=== PATIENT | female | born 1975 | race Caucasian/White ===

== ENCOUNTER 2021-06-14 21:45 | Inpatient (IN) ==
[2021-06-14] MEDS ORDERED: SODIUM CHLORIDE 0.9% 1,000 ML IV STA ×2 (22:11→23:19)
[2021-06-14 22:45] LABS: Basophils # 0.1 10*3/uL (0.0-0.2); Basophils % 0.3 % (0.0-0.8); Eosinophils # 0.1 10*3/uL (0.0-0.87); Eosinophils % 0.4 % (0.00-10.9); Hematocrit 29.1 VOL% (35.7-47.0); Hemoglobin 9.3 GM/DL (12.0-16.0); Immature Granulocytes % 5.7 %; Immature Granulocytes Absolute 1.49 #; Lymphocytes % 3.8 % (21.3-54.2); Mean Corpuscular Volume 88.4 FL (87-102); Mean Platelet Volume 9.4 FL (9.6-12.0); Monocytes % 3.2 % (1.7-12.7); Neutrophils % 86.6 % (38.7-73.9); Platelet Count 844 T/CUMM (130-400); Red Blood Count 3.29 MC/CUMM (3.8-5.5); Red Cell Distribution Width 14.6 % (9.3-17.3); White Blood Count 26.3 T/CUMM (4-12)
[2021-06-14 22:56] LABS: Bacteria,Urine Many /HPF (Few); Bilirubin,Urine Negative (Negative); Blood, Urine Moderate mg/dL (Negative); Glucose,Urine (UA) Negative (Negative); Hyaline Casts,Urine 5 /LPF (0-3); Ketones,Urine Negative (Negative); Nitrite,Urine Positive (Negative); Protein,Urine 30 MG/DL; Squamous Epithelial Cell,Urine Occasional /HPF (0-10); Urine Appearance Slightly Hazy (Clear); Urine Color Yellow (Yellow); Urine Specific Gravity 1.011 (1.001-1.035); Urine Urobilinogen < 2.0 EU/DL (0.2-1.0)
[2021-06-14 22:57] LABS: PT Patient Result 11.2 SECS (10.5-12.0)
[2021-06-14 23:02] LABS: Barbiturates Screen,Urine Negative (Negative); Benzodiazepines Screen,Urine Negative (Negative); Cannabinoid Screen,Urine Negative (Negative); Opiate Screen,Urine Positive (Negative); Phencyclidine Screen,Urine Negative (Negative)
[2021-06-14 23:02] LABS: Acetaminophen < 2.0 UG/ML (10-30); Salicylate 3.1 MG/DL (2.8-20)
[2021-06-14 23:07] LABS: Alanine Aminotransferase 44 U/L (13-56); Albumin 2.6 G/DL (3.4-5.0); Alkaline Phosphatase 142 U/L (45-117); Aspartate Amino Transferase 67 U/L (0-37); Blood Urea Nitrogen 38 MG/DL (7-18); Calcium 8.6 MG/DL (8.5-10.1); Carbon Dioxide 18 MMOL/L (21-32); Estimated Glom Filtration Rate 33 ML/MIN; Glucose 112 MG/DL (74-106); Osmolality,Calculated 282.8 MOS/KG (273-304); Potassium 4.6 MMOL/L (3.5-5.1); Sodium 137 MMOL/L (136-145)
[2021-06-14] MEDS ORDERED: PIPERACILLIN/TAZOBACTAM 3,375 MG in SODIUM CHLORIDE 0.9% 100 ML IV STA (23:19)
[2021-06-14 23:43] LABS: Ferritin 222.9 ng/mL (8-252)
[2021-06-15 00:07] LABS: Lymphocytes 4 % (20-55); Platelet Estimate Increased; Segmented Neutrophils 93 % (50-85); Total Cells Counted 100
[2021-06-15 00:16] LABS: Microcytosis 1+; Polychromasia Few
[2021-06-15 00:17] LABS: Hypochromasia Slight
[2021-06-15] MEDS ORDERED: NOREPINEPHRINE 16 MG in SODIUM CHLORIDE 0.9% 234 ML IV PRN (00:21)
[2021-06-15 00:51] LABS: ABG Base Excess -12.3 MMOL/L (-2.5-2.5); ABG HCO3 14.7 MMOL/L (20-26); ABG Oxygen Saturation 91.8 % (95-100); ABG PCO2 38.1 MM HG (35-48); ABG PO2 73.9 MM HG (80-95); ABG TCO2 14.3 MMOL/L (23-27)
[2021-06-15 00:52] LABS: ABG PH 7.203 (7.35-7.45)
[2021-06-15] MEDS: DEXTROSE 5% NACL 0.9% 1,000 ML IV SCH ×3 (03:20→19:25)
[2021-06-15] MEDS: ENOXAPARIN 40 MG/0.4 ML SYRINGE SUBCUT SCH (03:44)
[2021-06-15] MEDS: PANTOPRAZOLE 40 MG VIAL IV SCH (03:46)
[2021-06-15 05:59] LABS: Basophils # 0.1 10*3/uL (0.0-0.2); Basophils % 0.2 % (0.0-0.8); Eosinophils % 0.1 % (0.00-10.9); Hematocrit 28.4 VOL% (35.7-47.0); Immature Granulocytes % 3.2 %; Immature Granulocytes Absolute 0.81 #; Lymphocytes # 1.8 10*3/uL (1.4-4.0); Lymphocytes % 7.1 % (21.3-54.2); Mean Corpuscular HGB Conc 31.7 GM/DL (32-36); Mean Corpuscular Volume 90.7 FL (87-102); Monocytes % 2.9 % (1.7-12.7); Neutrophils % 86.5 % (38.7-73.9); Platelet Count 676 T/CUMM (130-400); Red Blood Count 3.13 MC/CUMM (3.8-5.5); Red Cell Distribution Width 14.7 % (9.3-17.3); White Blood Count 25.6 T/CUMM (4-12)
[2021-06-15 06:48] LABS: Folate 8.64 NG/ML (5.38-24.0)
[2021-06-15 07:01] LABS: Calcium 7.9 MG/DL (8.5-10.1); Ferritin 231.4 ng/mL (8-252); Osmolality,Calculated 280.8 MOS/KG (273-304); Potassium 3.7 MMOL/L (3.5-5.1); Thyroid Stimulating Hormone 0.166 uIU/ml (0.358-3.74)
[2021-06-15 08:53] LABS: Band Neutrophils 14 % (0-10); Lymphocytes 6 % (20-55); Platelet Estimate Increased; Segmented Neutrophils 75 % (50-85); Total Cells Counted 100
[2021-06-15 08:54] LABS: Anisocytosis 1+; Burr Cells Few; Macrocytosis Slight
[2021-06-15] MEDS: ASCORBIC ACID 500 MG TABLET PO SCH ×3 (10:30→21:28)
[2021-06-15] MEDS: ZINC GLUCONATE 50 MG TABLET PO SCH ×2 (10:30→10:45)
[2021-06-15] MEDS: CETIRIZINE 10 MG TABLET PO SCH ×2 (10:30→10:45)
[2021-06-15] MEDS: CHOLECALCIFEROL 1,000 UNIT TABLET PO SCH ×2 (10:30→10:45)
[2021-06-15] MEDS: DEXAMETHASONE 4 MG/1 ML VIAL IV SCH (10:44)
[2021-06-15] MEDS: NICOTINE 21 MG/24 HR PATCH TRANSDERM SCH (10:44)
[2021-06-15] MEDS: PIPERACILLIN/TAZOBACTAM 3,375 MG in SODIUM CHLORIDE 0.9% 100 ML IV SCH ×2 (11:04→18:42)
[2021-06-15] MEDS: POTASSIUM CHLORIDE RIDER 10 MEQ/100 ML PREMIX IV PRN ×6 (12:13→19:45)
[2021-06-15 13:35] LABS: Calcium 7.9 MG/DL (8.5-10.1); Potassium 3.2 MMOL/L (3.5-5.1)
[2021-06-15] MEDS: MAGNESIUM SULF RIDER 2 GM/50 ML PREMIX IV PRN (14:12)
[2021-06-15] MEDS ORDERED: POTASSIUM CHLORIDE 20 MEQ TABLET PO ONE (14:26)
[2021-06-16] MEDS: ENOXAPARIN 40 MG/0.4 ML SYRINGE SUBCUT SCH (01:37)
[2021-06-16] MEDS: PANTOPRAZOLE 40 MG VIAL IV SCH (01:37)
[2021-06-16] MEDS: PIPERACILLIN/TAZOBACTAM 3,375 MG in SODIUM CHLORIDE 0.9% 100 ML IV SCH ×3 (02:45→17:30)
[2021-06-16] MEDS: DEXTROSE 5% NACL 0.9% 1,000 ML IV SCH ×3 (03:25→17:30)
[2021-06-16] MEDS: DEXAMETHASONE 4 MG/1 ML VIAL IV SCH (08:53)
[2021-06-16] MEDS: ASCORBIC ACID 500 MG TABLET PO SCH ×2 (08:54→21:04)
[2021-06-16] MEDS: CETIRIZINE 10 MG TABLET PO SCH (08:54)
[2021-06-16] MEDS: ZINC GLUCONATE 50 MG TABLET PO SCH (08:54)
[2021-06-16] MEDS: CHOLECALCIFEROL 1,000 UNIT TABLET PO SCH (08:54)
[2021-06-16] MEDS: NICOTINE 21 MG/24 HR PATCH TRANSDERM SCH (08:57)
[2021-06-16] MEDS: MAGNESIUM SULF RIDER 2 GM/50 ML PREMIX IV PRN ×2 (08:59→11:00)
[2021-06-16 11:15] LABS: ABG Base Excess -7.2 MMOL/L (-2.5-2.5); ABG HCO3 18.4 MMOL/L (20-26); ABG Oxygen Saturation 87.5 % (95-100); ABG PCO2 36.5 MM HG (35-48); ABG PH 7.311 (7.35-7.45); ABG PO2 54.8 MM HG (80-95); ABG TCO2 17.2 MMOL/L (23-27)
[2021-06-16 19:15] LABS: Bacteria,Urine Occasional /HPF (Few); Bilirubin,Urine Negative (Negative); Blood, Urine Negative (Negative); Glucose,Urine (UA) 50 mg/dL (Negative); Hyaline Casts,Urine 14 /LPF (0-3); Ketones,Urine Negative (Negative); Nitrite,Urine Negative (Negative); Protein,Urine Negative; RBC,Urine 3 /HPF (0-4); Squamous Epithelial Cell,Urine Few /HPF (0-10); Urine Appearance CLOUDY (Clear); Urine Color Yellow (Yellow); Urine Specific Gravity 1.009 (1.001-1.035); Urine Urobilinogen < 2.0 EU/DL (0.2-1.0)
[2021-06-17] MEDS: DEXTROSE 5% NACL 0.9% 1,000 ML IV SCH ×3 (00:01→17:00)
[2021-06-17] MEDS: ENOXAPARIN 80 MG/0.8 ML SYRINGE SUBCUT SCH ×2 (01:22→16:00)
[2021-06-17] MEDS: PIPERACILLIN/TAZOBACTAM 3,375 MG in SODIUM CHLORIDE 0.9% 100 ML IV SCH ×2 (01:22→09:20)
[2021-06-17] MEDS: LORazepam 1 MG TABLET PO PRN ×2 (01:23→11:00)
[2021-06-17] MEDS: ENOXAPARIN 40 MG/0.4 ML SYRINGE SUBCUT SCH (02:53)
[2021-06-17 03:49] LABS: ABG Base Excess -5.1 MMOL/L (-2.5-2.5); ABG HCO3 20.2 MMOL/L (20-26); ABG Oxygen Saturation 96.2 % (95-100); ABG PCO2 38.4 MM HG (35-48); ABG PH 7.339 (7.35-7.45); ABG PO2 82.3 MM HG (80-95); ABG TCO2 21.4 MMOL/L (23-27)
[2021-06-17 04:21] LABS: Basophils % 0.1 % (0.0-0.8); Hemoglobin 9.1 GM/DL (12.0-16.0); Immature Granulocytes Absolute 0.16 #; Lymphocytes % 5.9 % (21.3-54.2); Mean Corpuscular HGB Conc 31.4 GM/DL (32-36); Mean Corpuscular Volume 89.5 FL (87-102); Mean Platelet Volume 9.2 FL (9.6-12.0); Monocytes % 3.5 % (1.7-12.7); NRBC # 0.03 10*3/uL; Neutrophils % 89.5 % (38.7-73.9); Platelet Count 715 T/CUMM (130-400); Red Blood Count 3.24 MC/CUMM (3.8-5.5); Red Cell Distribution Width 15.3 % (9.3-17.3); White Blood Count 16.6 T/CUMM (4-12)
[2021-06-17 04:59] LABS: Alanine Aminotransferase 32 U/L (13-56); Albumin 2.2 G/DL (3.4-5.0); Alkaline Phosphatase 121 U/L (45-117); Aspartate Amino Transferase 26 U/L (0-37); Bilirubin,Total < 0.39 MG/DL (0.20-1.00); Blood Urea Nitrogen 8 MG/DL (7-18); Carbon Dioxide 20 MMOL/L (21-32); Estimated Glom Filtration Rate 116 ML/MIN; Ferritin 157.3 ng/mL (8-252); Glucose 127 MG/DL (74-106); Potassium 3.3 MMOL/L (3.5-5.1); Sodium 143 MMOL/L (136-145)
[2021-06-17] MEDS ORDERED: PANTOPRAZOLE 40 MG TABLET PO SCH (09:00)
[2021-06-17] MEDS: DEXAMETHASONE 4 MG/1 ML VIAL IV SCH (09:18)
[2021-06-17] MEDS: ASCORBIC ACID 500 MG TABLET PO SCH ×2 (09:19→22:24)
[2021-06-17] MEDS: ZINC GLUCONATE 50 MG TABLET PO SCH (09:19)
[2021-06-17] MEDS: CHOLECALCIFEROL 1,000 UNIT TABLET PO SCH (09:19)
[2021-06-17] MEDS: CETIRIZINE 10 MG TABLET PO SCH (09:19)
[2021-06-17] MEDS: NICOTINE 21 MG/24 HR PATCH TRANSDERM SCH (09:20)
[2021-06-17] MEDS: POTASSIUM CHLORIDE RIDER 10 MEQ/100 ML PREMIX IV PRN (10:00)
[2021-06-17] MEDS ORDERED: ETOMIDATE 20 MG/10 ML VIAL IV ONE ×2 (13:17→13:50)
[2021-06-17] MEDS ORDERED: SUCCINYLCHOLINE 200 MG/10 ML VIAL ONE (13:18)
[2021-06-17] MEDS ORDERED: LORazepam 2 MG/1 ML VIAL IV ONE (13:40)
[2021-06-17] MEDS ORDERED: LORazepam 2 MG/1 ML VIAL ONE (13:40)
[2021-06-17] MEDS ORDERED: ROCURONIUM 100 MG/10 ML VIAL IV ONE (13:46)
[2021-06-17] MEDS ORDERED: SUCCINYLCHOLINE 200 MG/10 ML VIAL IV ONE (13:50)
[2021-06-17 15:25] LABS: ABG Base Excess -6.1 MMOL/L (-2.5-2.5); ABG HCO3 19.4 MMOL/L (20-26); ABG Oxygen Saturation 98.7 % (95-100); ABG PCO2 38.5 MM HG (35-48); ABG PH 7.315 (7.35-7.45); ABG TCO2 18.3 MMOL/L (23-27)
[2021-06-17] MEDS ORDERED: MORPHINE 2 MG/1 ML SYRINGE IV PRN (15:31)
[2021-06-17] MEDS: methylPREDNISolone SOD SUC 40 MG/1 ML VIAL IV SCH ×2 (16:20→22:25)
[2021-06-17] MEDS: OLANZapine 10 MG VIAL IM SCH ×2 (16:21→22:27)
[2021-06-17] MEDS: FERRIC GLUCONATE COMPLEX 62.5 MG in SODIUM CHLORIDE 0.9% 100 ML IV SCH (16:21)
[2021-06-17] MEDS: cefTRIAXone 1,000 MG in SODIUM CHLORIDE 0.9% 100 ML IV SCH (16:40)
[2021-06-17] MEDS: MAGNESIUM SULF RIDER 2 GM/50 ML PREMIX IV PRN (17:00)
[2021-06-17] MEDS: AZITHROMYCIN INJ 500 MG in SODIUM CHLORIDE 0.9% 250 ML IV SCH (17:22)
[2021-06-18] MEDS: methylPREDNISolone SOD SUC 40 MG/1 ML VIAL IV SCH ×4 (01:13→22:23)
[2021-06-18] MEDS: ENOXAPARIN 80 MG/0.8 ML SYRINGE SUBCUT SCH ×2 (01:14→15:15)
[2021-06-18] MEDS: INSULIN REGULAR 100 UNIT/ML SUBCUT SCH ×4 (01:15→18:30)
[2021-06-18 02:46] LABS: ABG Base Excess -6.9 MMOL/L (-2.5-2.5); ABG HCO3 18.8 MMOL/L (20-26); ABG Oxygen Saturation 99.7 % (95-100); ABG PCO2 35.5 MM HG (35-48); ABG PH 7.324 (7.35-7.45); ABG TCO2 17.1 MMOL/L (23-27)
[2021-06-18] MEDS: DEXTROSE 5% NACL 0.9% 1,000 ML IV SCH ×3 (03:16→16:39)
[2021-06-18 03:51] LABS: Hematocrit 25.7 VOL% (35.7-47.0); Hemoglobin 8.2 GM/DL (12.0-16.0); Immature Granulocytes % 1.5 %; Immature Granulocytes Absolute 0.18 #; Lymphocytes # 0.7 10*3/uL (1.4-4.0); Lymphocytes % 5.8 % (21.3-54.2); Mean Corpuscular HGB Conc 31.9 GM/DL (32-36); Mean Corpuscular Volume 89.5 FL (87-102); Mean Platelet Volume 9.3 FL (9.6-12.0); Monocytes % 1.5 % (1.7-12.7); NRBC # 0.03 10*3/uL; Neutrophils % 91.2 % (38.7-73.9); Platelet Count 616 T/CUMM (130-400); Red Blood Count 2.87 MC/CUMM (3.8-5.5); Red Cell Distribution Width 15.7 % (9.3-17.3); White Blood Count 11.8 T/CUMM (4-12)
[2021-06-18 04:11] LABS: Alanine Aminotransferase 28 U/L (13-56); Alkaline Phosphatase 106 U/L (45-117); Aspartate Amino Transferase 25 U/L (0-37); Bilirubin,Total < 0.39 MG/DL (0.20-1.00); Blood Urea Nitrogen 9 MG/DL (7-18); Carbon Dioxide 20 MMOL/L (21-32); Estimated Glom Filtration Rate 113 ML/MIN; Ferritin 148.5 ng/mL (8-252); Glucose 132 MG/DL (74-106); Osmolality,Calculated 290.6 MOS/KG (273-304); Potassium 3.2 MMOL/L (3.5-5.1); Sodium 146 MMOL/L (136-145); Total Protein 6.1 G/DL (6.4-8.2)
[2021-06-18 04:15] LABS: Hypochromasia 1+; Lymphocytes 8 % (20-55); Microcytosis 1+; Platelet Estimate Increased; Segmented Neutrophils 91 % (50-85); Total Cells Counted 100
[2021-06-18] MEDS: POTASSIUM CHLORIDE RIDER 10 MEQ/100 ML PREMIX IV PRN (06:22)
[2021-06-18] MEDS ORDERED: PANTOPRAZOLE 40 MG VIAL IV ONE (08:40)
[2021-06-18] MEDS ORDERED: FUROSEMIDE 20 MG/2 ML VIAL IV ONE (08:43)
[2021-06-18] MEDS: FERRIC GLUCONATE COMPLEX 62.5 MG in SODIUM CHLORIDE 0.9% 100 ML IV SCH (08:49)
[2021-06-18] MEDS: ZINC GLUCONATE 50 MG TABLET PO SCH (08:50)
[2021-06-18] MEDS: CHOLECALCIFEROL 1,000 UNIT TABLET PO SCH (08:50)
[2021-06-18] MEDS: NICOTINE 21 MG/24 HR PATCH TRANSDERM SCH (08:50)
[2021-06-18] MEDS: ASCORBIC ACID 500 MG TABLET PO SCH ×2 (08:50→22:24)
[2021-06-18] MEDS: CETIRIZINE 10 MG TABLET PO SCH (08:51)
[2021-06-18] MEDS: PANTOPRAZOLE 40 MG VIAL IV SCH (08:51)
[2021-06-18] MEDS: OLANZapine 10 MG VIAL IM SCH ×2 (08:52→22:24)
[2021-06-18] MEDS ORDERED: DEXTROSE 50% 25 GM/50 ML VIAL IV PRN (13:42)
[2021-06-18] MEDS: cefTRIAXone 1,000 MG in SODIUM CHLORIDE 0.9% 100 ML IV SCH (16:00)
[2021-06-18] MEDS: AZITHROMYCIN INJ 500 MG in SODIUM CHLORIDE 0.9% 250 ML IV SCH (16:32)
[2021-06-18] MEDS: MIDAZOLAM 100 MG in SODIUM CHLORIDE 0.9% 80 ML IV PRN (18:10)
[2021-06-19] MEDS: ENOXAPARIN 80 MG/0.8 ML SYRINGE SUBCUT SCH ×2 (03:51→13:15)
[2021-06-19] MEDS: methylPREDNISolone SOD SUC 40 MG/1 ML VIAL IV SCH ×3 (03:52→22:00)
[2021-06-19 04:53] LABS: ABG Oxygen Saturation 98.5 % (95-100); ABG PCO2 34.3 MM HG (35-48); ABG PH 7.425 (7.35-7.45); ABG PO2 151.7 MM HG (80-95); ABG TCO2 23.1 MMOL/L (23-27)
[2021-06-19] MEDS: DEXTROSE 5% NACL 0.9% 1,000 ML IV SCH (05:06)
[2021-06-19 05:29] LABS: Basophils % 0.1 % (0.0-0.8); Immature Granulocytes % 2.8 %; Immature Granulocytes Absolute 0.61 #; Lymphocytes # 1.6 10*3/uL (1.4-4.0); Lymphocytes % 7.5 % (21.3-54.2); Mean Corpuscular HGB Conc 30.8 GM/DL (32-36); Neutrophils % 86.6 % (38.7-73.9); Platelet Count 754 T/CUMM (130-400); Red Blood Count 1.29 MC/CUMM (3.8-5.5); Red Cell Distribution Width 15.9 % (9.3-17.3); White Blood Count 21.5 T/CUMM (4-12)
[2021-06-19 05:45] LABS: Hemoglobin 3.7 GM/DL (12.0-16.0)
[2021-06-19 05:50] LABS: Lymphocytes 8 % (20-55); Platelet Estimate Increased; Segmented Neutrophils 89 % (50-85); Total Cells Counted 100
[2021-06-19 05:52] LABS: Hypochromasia 1+; Microcytosis 1+
[2021-06-19 05:53] LABS: Alanine Aminotransferase 21 U/L (13-56); Albumin 1.9 G/DL (3.4-5.0); Alkaline Phosphatase 97 U/L (45-117); Aspartate Amino Transferase 15 U/L (0-37); Bilirubin,Total < 0.39 MG/DL (0.20-1.00); Blood Urea Nitrogen 19 MG/DL (7-18); Calcium 8.5 MG/DL (8.5-10.1); Carbon Dioxide 21 MMOL/L (21-32); Estimated Glom Filtration Rate 118 ML/MIN; Glucose 138 MG/DL (74-106); Osmolality,Calculated 291.7 MOS/KG (273-304); Potassium 3.5 MMOL/L (3.5-5.1); Sodium 145 MMOL/L (136-145); Total Protein 5.8 G/DL (6.4-8.2)
[2021-06-19 05:55] LABS: Ferritin 213.9 ng/mL (8-252)
[2021-06-19] MEDS: INSULIN REGULAR 100 UNIT/ML SUBCUT SCH ×4 (06:19→17:40)
[2021-06-19 06:27] LABS: Basophils % 0.1 % (0.0-0.8); Eosinophils % 0.1 % (0.00-10.9); Hematocrit 26.9 VOL% (35.7-47.0); Immature Granulocytes % 2.3 %; Immature Granulocytes Absolute 0.33 #; Lymphocytes % 7.3 % (21.3-54.2); Mean Corpuscular HGB Conc 30.9 GM/DL (32-36); Mean Corpuscular Volume 90.9 FL (87-102); Mean Platelet Volume 10.2 FL (9.6-12.0); Monocytes % 2.9 % (1.7-12.7); NRBC # 0.02 10*3/uL; Neutrophils % 87.3 % (38.7-73.9)
[2021-06-19 06:29] LABS: White Blood Count 14.2 T/CUMM (4-12)
[2021-06-19 06:30] LABS: Hemoglobin 8.3 GM/DL (12.0-16.0); Platelet Count 520 T/CUMM (130-400); Red Blood Count 2.96 MC/CUMM (3.8-5.5)
[2021-06-19 06:44] LABS: Hypochromasia 1+; Lymphocytes 9 % (20-55); Microcytosis 1+; Platelet Estimate Adequate; Segmented Neutrophils 89 % (50-85); Total Cells Counted 100
[2021-06-19] MEDS: NICOTINE 21 MG/24 HR PATCH TRANSDERM SCH (09:03)
[2021-06-19] MEDS: OLANZapine 10 MG VIAL IM SCH ×2 (09:03→22:00)
[2021-06-19] MEDS: PANTOPRAZOLE 40 MG VIAL IV SCH (09:03)
[2021-06-19] MEDS: ASCORBIC ACID 500 MG TABLET PO SCH ×2 (09:04→22:00)
[2021-06-19] MEDS: CHOLECALCIFEROL 1,000 UNIT TABLET PO SCH (09:04)
[2021-06-19] MEDS: ZINC GLUCONATE 50 MG TABLET PO SCH (09:04)
[2021-06-19] MEDS: CETIRIZINE 10 MG TABLET PO SCH (09:08)
[2021-06-19] MEDS: FERRIC GLUCONATE COMPLEX 62.5 MG in SODIUM CHLORIDE 0.9% 100 ML IV SCH (10:49)
[2021-06-19] MEDS: POTASSIUM CHLORIDE RIDER 10 MEQ/100 ML PREMIX IV PRN ×3 (13:23→16:45)
[2021-06-19] MEDS: MIDAZOLAM 100 MG in SODIUM CHLORIDE 0.9% 80 ML IV PRN (17:33)
[2021-06-19] MEDS: AZITHROMYCIN INJ 500 MG in SODIUM CHLORIDE 0.9% 250 ML IV SCH (18:13)
[2021-06-19] MEDS: cefTRIAXone 1,000 MG in SODIUM CHLORIDE 0.9% 100 ML IV SCH (18:43)
[2021-06-19] MEDS: ACETAMINOPHEN 325 MG TABLET PO PRN (22:47)
[2021-06-20] MEDS: INSULIN REGULAR 100 UNIT/ML SUBCUT SCH ×4 (00:10→19:50)
[2021-06-20] MEDS: ENOXAPARIN 80 MG/0.8 ML SYRINGE SUBCUT SCH ×2 (02:30→13:46)
[2021-06-20 04:56] LABS: ABG Base Excess -2.7 MMOL/L (-2.5-2.5); ABG HCO3 22.3 MMOL/L (20-26); ABG Oxygen Saturation 94.7 % (95-100); ABG PCO2 39.6 MM HG (35-48); ABG PH 7.369 (7.35-7.45); ABG PO2 75.9 MM HG (80-95); ABG TCO2 23.5 MMOL/L (23-27)
[2021-06-20 05:43] LABS: Basophils % 0.1 % (0.0-0.8); Eosinophils # 0.3 10*3/uL (0.0-0.87); Hematocrit 27.9 VOL% (35.7-47.0); Hemoglobin 8.6 GM/DL (12.0-16.0); Immature Granulocytes % 2.6 %; Immature Granulocytes Absolute 0.41 #; Lymphocytes # 3.9 10*3/uL (1.4-4.0); Lymphocytes % 24.7 % (21.3-54.2); Mean Corpuscular HGB Conc 30.8 GM/DL (32-36); Mean Corpuscular Volume 91.8 FL (87-102); Mean Platelet Volume 9.5 FL (9.6-12.0); Monocytes % 6.2 % (1.7-12.7); Neutrophils % 64.4 % (38.7-73.9); Platelet Count 542 T/CUMM (130-400); Red Blood Count 3.04 MC/CUMM (3.8-5.5); Red Cell Distribution Width 16.3 % (9.3-17.3); White Blood Count 15.6 T/CUMM (4-12)
[2021-06-20] MEDS: DEXTROSE 5% NACL 0.9% 1,000 ML IV SCH (05:58)
[2021-06-20 06:13] LABS: Alanine Aminotransferase 21 U/L (13-56); Albumin 1.9 G/DL (3.4-5.0); Alkaline Phosphatase 88 U/L (45-117); Aspartate Amino Transferase 15 U/L (0-37); Bilirubin,Total < 0.39 MG/DL (0.20-1.00); Blood Urea Nitrogen 27 MG/DL (7-18); Calcium 8.6 MG/DL (8.5-10.1); Carbon Dioxide 22 MMOL/L (21-32); Estimated Glom Filtration Rate 119 ML/MIN; Glucose 95 MG/DL (74-106); Osmolality,Calculated 292.7 MOS/KG (273-304); Potassium 3.5 MMOL/L (3.5-5.1); Sodium 145 MMOL/L (136-145); Total Protein 5.7 G/DL (6.4-8.2)
[2021-06-20 06:15] LABS: Ferritin 251.8 ng/mL (8-252)
[2021-06-20] MEDS: PANTOPRAZOLE 40 MG VIAL IV SCH (09:02)
[2021-06-20] MEDS: OLANZapine 10 MG VIAL IM SCH ×2 (09:02→21:44)
[2021-06-20] MEDS: ASCORBIC ACID 500 MG TABLET PO SCH ×2 (09:03→21:44)
[2021-06-20] MEDS: CHOLECALCIFEROL 1,000 UNIT TABLET PO SCH (09:03)
[2021-06-20] MEDS: methylPREDNISolone SOD SUC 40 MG/1 ML VIAL IV SCH ×2 (09:03→21:43)
[2021-06-20] MEDS: ZINC GLUCONATE 50 MG TABLET PO SCH (09:03)
[2021-06-20] MEDS: CETIRIZINE 10 MG TABLET PO SCH (09:03)
[2021-06-20] MEDS: FLUCONAZOLE INJ 100 MG/50 ML PREMIX IV SCH (09:04)
[2021-06-20] MEDS: NICOTINE 21 MG/24 HR PATCH TRANSDERM SCH (09:04)
[2021-06-20] MEDS: FERRIC GLUCONATE COMPLEX 62.5 MG in SODIUM CHLORIDE 0.9% 100 ML IV SCH (09:05)
[2021-06-20] MEDS: AZITHROMYCIN INJ 500 MG in SODIUM CHLORIDE 0.9% 250 ML IV SCH (15:46)
[2021-06-20] MEDS: cefTRIAXone 1,000 MG in SODIUM CHLORIDE 0.9% 100 ML IV SCH (16:30)
[2021-06-21] MEDS: ENOXAPARIN 80 MG/0.8 ML SYRINGE SUBCUT SCH ×2 (01:57→13:52)
[2021-06-21 03:02] LABS: ABG Base Excess 1.8 MMOL/L (-2.5-2.5); ABG Oxygen Saturation 95.3 % (95-100); ABG PCO2 30.9 MM HG (35-48); ABG PH 7.507 (7.35-7.45); ABG PO2 69.6 MM HG (80-95); ABG TCO2 22.4 MMOL/L (23-27)
[2021-06-21 06:58] LABS: Basophils % 0.2 % (0.0-0.8); Eosinophils # 0.3 10*3/uL (0.0-0.87); Eosinophils % 2.2 % (0.00-10.9); Hematocrit 30.5 VOL% (35.7-47.0); Hemoglobin 9.6 GM/DL (12.0-16.0); Immature Granulocytes % 2.3 %; Immature Granulocytes Absolute 0.28 #; Mean Corpuscular HGB Conc 31.5 GM/DL (32-36); Mean Corpuscular Volume 90.8 FL (87-102); Mean Platelet Volume 8.9 FL (9.6-12.0); Monocytes % 6.4 % (1.7-12.7); Neutrophils % 56.9 % (38.7-73.9); Platelet Count 489 T/CUMM (130-400); Red Blood Count 3.36 MC/CUMM (3.8-5.5); Red Cell Distribution Width 15.4 % (9.3-17.3); White Blood Count 12.4 T/CUMM (4-12)
[2021-06-21] MEDS: INSULIN REGULAR 100 UNIT/ML SUBCUT SCH ×4 (07:15→18:51)
[2021-06-21 07:23] LABS: Alanine Aminotransferase 32 U/L (13-56); Albumin 2.2 G/DL (3.4-5.0); Alkaline Phosphatase 86 U/L (45-117); Aspartate Amino Transferase 29 U/L (0-37); Bilirubin,Total < 0.39 MG/DL (0.20-1.00); Blood Urea Nitrogen 14 MG/DL (7-18); Calcium 8.2 MG/DL (8.5-10.1); Carbon Dioxide 25 MMOL/L (21-32); Estimated Glom Filtration Rate 126 ML/MIN; Glucose 77 MG/DL (74-106); Potassium 2.8 MMOL/L (3.5-5.1); Sodium 143 MMOL/L (136-145); Total Protein 6.1 G/DL (6.4-8.2)
[2021-06-21 07:32] LABS: Ferritin 395.6 ng/mL (8-252)
[2021-06-21] MEDS: DEXTROSE 5% NACL 0.9% 1,000 ML IV SCH (07:32)
[2021-06-21] MEDS: ASCORBIC ACID 500 MG TABLET PO SCH ×2 (09:27→20:30)
[2021-06-21] MEDS: ZINC GLUCONATE 50 MG TABLET PO SCH (09:27)
[2021-06-21] MEDS: CETIRIZINE 10 MG TABLET PO SCH (09:27)
[2021-06-21] MEDS: CHOLECALCIFEROL 1,000 UNIT TABLET PO SCH (09:27)
[2021-06-21] MEDS: NICOTINE 21 MG/24 HR PATCH TRANSDERM SCH (09:27)
[2021-06-21] MEDS: BUDESONIDE/FORMOTEROL 160-4.5 INHALER 6 GM INH SCH ×2 (09:34→20:30)
[2021-06-21 09:57] LABS: ABG Base Excess 4.2 MMOL/L (-2.5-2.5); ABG HCO3 28.2 MMOL/L (20-26); ABG PCO2 34.6 MM HG (35-48); ABG PH 7.504 (7.35-7.45); ABG PO2 76.6 MM HG (80-95); ABG TCO2 24.9 MMOL/L (23-27); Pt O2 Delivery Device Room Air
[2021-06-21] MEDS ORDERED: POTASSIUM CHLORIDE 20 MEQ TABLET PO PRN (09:57)
[2021-06-21] MEDS: FLUCONAZOLE INJ 100 MG/50 ML PREMIX IV SCH (11:58)
[2021-06-21] MEDS: PANTOPRAZOLE 40 MG VIAL IV SCH (11:59)
[2021-06-21] MEDS: methylPREDNISolone SOD SUC 40 MG/1 ML VIAL IV SCH ×2 (11:59→20:26)
[2021-06-21] MEDS: OLANZapine 10 MG VIAL IM SCH (11:59)
[2021-06-21] MEDS: FERRIC GLUCONATE COMPLEX 62.5 MG in SODIUM CHLORIDE 0.9% 100 ML IV SCH (12:00)
[2021-06-21] MEDS: AZITHROMYCIN INJ 500 MG in SODIUM CHLORIDE 0.9% 250 ML IV SCH (15:50)
[2021-06-21] MEDS: cefTRIAXone 1,000 MG in SODIUM CHLORIDE 0.9% 100 ML IV SCH (16:00)
[2021-06-21] MEDS: OLANZapine 2.5 MG TABLET PO SCH (20:30)
[2021-06-22] MEDS: INSULIN REGULAR 100 UNIT/ML SUBCUT SCH ×4 (01:12→18:00)
[2021-06-22] MEDS: ENOXAPARIN 80 MG/0.8 ML SYRINGE SUBCUT SCH ×2 (01:47→13:24)
[2021-06-22] MEDS: DEXTROSE 5% NACL 0.9% 1,000 ML IV SCH (06:00)
[2021-06-22 06:32] LABS: Basophils % 0.1 % (0.0-0.8); Hematocrit 30.3 VOL% (35.7-47.0); Hemoglobin 9.5 GM/DL (12.0-16.0); Immature Granulocytes Absolute 0.22 #; Lymphocytes # 1.4 10*3/uL (1.4-4.0); Lymphocytes % 12.7 % (21.3-54.2); Mean Corpuscular HGB Conc 31.4 GM/DL (32-36); Mean Corpuscular Volume 88.9 FL (87-102); Mean Platelet Volume 9.2 FL (9.6-12.0); Monocytes % 3.9 % (1.7-12.7); Neutrophils % 81.3 % (38.7-73.9); Platelet Count 505 T/CUMM (130-400); Red Blood Count 3.41 MC/CUMM (3.8-5.5); Red Cell Distribution Width 15.3 % (9.3-17.3); White Blood Count 11.1 T/CUMM (4-12)
[2021-06-22 06:52] LABS: Albumin 2.3 G/DL (3.4-5.0); Bilirubin,Total 0.5 MG/DL (0.20-1.00); Calcium 8.6 MG/DL (8.5-10.1); Osmolality,Calculated 277.5 MOS/KG (273-304); Potassium 3.8 MMOL/L (3.5-5.1); Total Protein 6.3 G/DL (6.4-8.2)
[2021-06-22] MEDS: CHOLECALCIFEROL 1,000 UNIT TABLET PO SCH (08:44)
[2021-06-22] MEDS: CETIRIZINE 10 MG TABLET PO SCH (08:44)
[2021-06-22] MEDS: PANTOPRAZOLE 40 MG VIAL IV SCH (08:44)
[2021-06-22] MEDS: ZINC GLUCONATE 50 MG TABLET PO SCH (08:44)
[2021-06-22] MEDS: methylPREDNISolone SOD SUC 40 MG/1 ML VIAL IV SCH ×2 (08:44→20:19)
[2021-06-22] MEDS: ASCORBIC ACID 500 MG TABLET PO SCH ×2 (08:44→20:19)
[2021-06-22] MEDS: OLANZapine 2.5 MG TABLET PO SCH ×2 (08:46→20:19)
[2021-06-22] MEDS: NICOTINE 21 MG/24 HR PATCH TRANSDERM SCH ×2 (09:20→14:51)
[2021-06-22] MEDS: BUDESONIDE/FORMOTEROL 160-4.5 INHALER 6 GM INH SCH ×2 (11:25→20:19)
[2021-06-22] MEDS: FLUCONAZOLE INJ 100 MG/50 ML PREMIX IV SCH (11:25)
[2021-06-22] MEDS: FERRIC GLUCONATE COMPLEX 62.5 MG in SODIUM CHLORIDE 0.9% 100 ML IV SCH (13:24)
[2021-06-22] MEDS: CEFUROXIME 500 MG TABLET PO SCH (20:19)
[2021-06-23] MEDS: ENOXAPARIN 80 MG/0.8 ML SYRINGE SUBCUT SCH ×2 (01:17→13:41)
[2021-06-23] MEDS: INSULIN REGULAR 100 UNIT/ML SUBCUT SCH ×4 (01:19→17:26)
[2021-06-23] MEDS: CEFUROXIME 500 MG TABLET PO SCH ×2 (09:44→21:27)
[2021-06-23] MEDS: ZINC GLUCONATE 50 MG TABLET PO SCH (09:44)
[2021-06-23] MEDS: ASCORBIC ACID 500 MG TABLET PO SCH ×2 (09:44→21:27)
[2021-06-23] MEDS: OLANZapine 2.5 MG TABLET PO SCH ×2 (09:44→21:27)
[2021-06-23] MEDS: CETIRIZINE 10 MG TABLET PO SCH (09:44)
[2021-06-23] MEDS: PANTOPRAZOLE 40 MG VIAL IV SCH (09:45)
[2021-06-23] MEDS: methylPREDNISolone SOD SUC 40 MG/1 ML VIAL IV SCH ×2 (09:45→21:26)
[2021-06-23] MEDS: CHOLECALCIFEROL 1,000 UNIT TABLET PO SCH (09:45)
[2021-06-23] MEDS: NICOTINE 21 MG/24 HR PATCH TRANSDERM SCH (09:46)
[2021-06-23] MEDS: BUDESONIDE/FORMOTEROL 160-4.5 INHALER 6 GM INH SCH ×2 (09:46→21:26)
[2021-06-23] MEDS: POTASSIUM CHLORIDE RIDER 10 MEQ/100 ML PREMIX IV PRN ×3 (09:52→17:18)
[2021-06-23] MEDS: FLUCONAZOLE INJ 100 MG/50 ML PREMIX IV SCH (13:41)
[2021-06-23] MEDS: diphenhydrAMINE CAP 25 MG CAPSULE PO PRN (21:27)
[2021-06-24] MEDS: ENOXAPARIN 80 MG/0.8 ML SYRINGE SUBCUT SCH ×2 (01:43→15:42)
[2021-06-24] MEDS: INSULIN REGULAR 100 UNIT/ML SUBCUT SCH ×4 (01:43→18:41)
[2021-06-24 06:48] LABS: Basophils % 0.1 % (0.0-0.8); Hematocrit 33.2 VOL% (35.7-47.0); Hemoglobin 10.3 GM/DL (12.0-16.0); Immature Granulocytes % 1.1 %; Immature Granulocytes Absolute 0.16 #; Lymphocytes # 1.6 10*3/uL (1.4-4.0); Lymphocytes % 10.7 % (21.3-54.2); Mean Platelet Volume 9.3 FL (9.6-12.0); Monocytes % 4.2 % (1.7-12.7); Neutrophils % 83.9 % (38.7-73.9); Platelet Count 462 T/CUMM (130-400); Red Blood Count 3.61 MC/CUMM (3.8-5.5); Red Cell Distribution Width 15.1 % (9.3-17.3); White Blood Count 14.4 T/CUMM (4-12)
[2021-06-24 07:12] LABS: Calcium 8.7 MG/DL (8.5-10.1); Osmolality,Calculated 280.4 MOS/KG (273-304); Potassium 3.9 MMOL/L (3.5-5.1)
[2021-06-24 07:13] LABS: Albumin 2.4 G/DL (3.4-5.0); Bilirubin,Total 0.5 MG/DL (0.20-1.00); Calcium 8.5 MG/DL (8.5-10.1); Osmolality,Calculated 284.1 MOS/KG (273-304); Potassium 3.6 MMOL/L (3.5-5.1); Total Protein 6.3 G/DL (6.4-8.2)
[2021-06-24] MEDS: ZINC GLUCONATE 50 MG TABLET PO SCH (09:04)
[2021-06-24] MEDS: CHOLECALCIFEROL 1,000 UNIT TABLET PO SCH (09:04)
[2021-06-24] MEDS: ASCORBIC ACID 500 MG TABLET PO SCH ×2 (09:05→20:24)
[2021-06-24] MEDS: CETIRIZINE 10 MG TABLET PO SCH (09:05)
[2021-06-24] MEDS: CEFUROXIME 500 MG TABLET PO SCH ×2 (09:05→20:24)
[2021-06-24] MEDS: methylPREDNISolone SOD SUC 40 MG/1 ML VIAL IV SCH (09:05)
[2021-06-24] MEDS: PANTOPRAZOLE 40 MG VIAL IV SCH (09:05)
[2021-06-24] MEDS: NICOTINE 21 MG/24 HR PATCH TRANSDERM SCH (09:06)
[2021-06-24] MEDS: BUDESONIDE/FORMOTEROL 160-4.5 INHALER 6 GM INH SCH ×2 (09:09→20:24)
[2021-06-24] MEDS: OLANZapine 2.5 MG TABLET PO SCH ×2 (09:09→20:24)
[2021-06-24] MEDS: FLUCONAZOLE INJ 100 MG/50 ML PREMIX IV SCH (12:06)
[2021-06-24] MEDS: diphenhydrAMINE CAP 25 MG CAPSULE PO PRN (20:24)
[2021-06-25] MEDS: INSULIN REGULAR 100 UNIT/ML SUBCUT SCH ×2 (00:53→05:44)
[2021-06-25] MEDS: ENOXAPARIN 80 MG/0.8 ML SYRINGE SUBCUT SCH (01:48)
[2021-06-25] MEDS: ACETAMINOPHEN 325 MG TABLET PO PRN (04:05)
[2021-06-25 08:06] VITALS: BP 117/62
[2021-06-25] MEDS: FLUCONAZOLE INJ 100 MG/50 ML PREMIX IV SCH (08:46)
[2021-06-25] MEDS: ASCORBIC ACID 500 MG TABLET PO SCH (08:47)
[2021-06-25] MEDS: ZINC GLUCONATE 50 MG TABLET PO SCH (08:47)
[2021-06-25] MEDS: CETIRIZINE 10 MG TABLET PO SCH (08:47)
[2021-06-25] MEDS: CHOLECALCIFEROL 1,000 UNIT TABLET PO SCH (08:47)
[2021-06-25] MEDS: CEFUROXIME 500 MG TABLET PO SCH (08:47)
[2021-06-25] MEDS: methylPREDNISolone SOD SUC 40 MG/1 ML VIAL IV SCH (08:47)
[2021-06-25] MEDS: OLANZapine 2.5 MG TABLET PO SCH (08:47)
[2021-06-25] MEDS: PANTOPRAZOLE 40 MG VIAL IV SCH (08:48)
[2021-06-25] MEDS: BUDESONIDE/FORMOTEROL 160-4.5 INHALER 6 GM INH SCH (09:17)
[2021-06-25] MEDS: NICOTINE 21 MG/24 HR PATCH TRANSDERM SCH (09:17)
== END 2021-06-25 10:50 | disposition home or self-care (01) | DRG 871 ==
LOC: EDUNIT# → EDBD → N.ED 21:45 → SUATTDRO 06-15 00:33 → N.EDINP 06-15 00:33 → N.ICU 06-15 03:01 → N.2E 06-15 19:04 → N.ICU 06-15 19:07 → N.3E 06-21 17:55
PROVIDERS: ADMIT Internal Medicine; ATTEND Internal Medicine